=== PATIENT | male | born 1990 | race Caucasian/White ===

== ENCOUNTER 2024-11-17 11:58 | Emergency (ER) | payer OTHER, SELFPAY ==
[2024-11-17] VITALS (10 sets, daily range): BP systolic 157–190; BP diastolic 90–116; PULSE 78–103; RESP 13–22; TEMP 36.8; O2SAT 98–100; BMI 26.2
--- NOTE | 2024-11-17 11:59 | DI.RAD.S_ITS ---
PROCEDURE: XR CHEST 1V INDICATIONS: chest pain TECHNIQUE: One view of the chest was acquired. COMPARISON: None. FINDINGS: Surgical changes and devices: None. Lungs and pleura: Lungs are clear. No pleural effusions or pneumothorax. Mediastinum: Mediastinal contours appear normal. Heart size is normal. Bones and chest wall: No suspicious bony lesions. Overlying soft tissues appear unremarkable. IMPRESSION: No acute cardiopulmonary abnormality is seen. Dictated by: Luis Carlos Ferris M.D. on 11/17/2024 at 12:48 Approved by: Luis Carlos Ferris M.D. on 11/17/2024 at 12:49
--- NOTE | 2024-11-17 11:59 | EKG_ITS ---
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
[2024-11-17 12:15] LABS: Add Manual Diff / Slide Review NO; Basophils Absolute Auto 0 /uL (0-100); Basophils Percent Auto 0.8 % (0-2); Eosinophils Absolute Auto 0 /uL (0-450); Eosinophils Percent Auto 0.7 % (2-4); Hematocrit 46.1 % (41-53); Lymphocytes Absolute Auto 1300 /uL (1100-4500); Lymphocytes Percent Auto 26.2 % (25-40); Mean Corpuscular HGB Conc 34.7 % (30-36); Mean Corpuscular Volume 95.1 fL (80-100); Monocytes Absolute Auto 400 /uL (0-900); Monocytes Percent Auto 8.5 % (3-14); Neutrophils Absolute Auto 3100 /uL (1500-7000); Neutrophils Percent Auto 63.8 % (50-75); Platelet Count 268 X10^3/uL (150-400); Red Blood Cell Count 4.85 X10^6/uL (4.5-5.9); Red Cell Distribution Width 12.9 % (11.6-14.8); White Blood Cell Count 4.9 X10^3/uL (4.5-11.0)
[2024-11-17 12:21] LABS: INR 0.9 (0.9-1.3); Prothrombin Time 10.2 SECONDS (9.4-12.5)
[2024-11-17 12:23] LABS: PTT Partial Thromboplastin Tim 31 SECONDS (25.1-36.5)
[2024-11-17 12:26] LABS: Alanine Aminotransferase 38 IU/L (<50); Albumin 5.2 g/dL (3.5-5.0); Albumin Globulin Ratio 1.8 (1.0-2.8); Alkaline Phosphatase 58 U/L (38-126); Aspartate Aminotransferase 47 IU/L (17-59); BUN Creatinine Ratio 14.7 (6-22); Bilirubin Total 1.3 mg/dL (0.2-1.3); Blood Urea Nitrogen 16 mg/dL (9-20); Calcium 9.7 mg/dL (8.4-10.2); Carbon Dioxide 24 mmol/L (22-32); Chloride 101 mmol/L (98-107); Creatine Kinase 306 U/L (55-170); Estimated Glomerular Filt Rate > 60 mL/min (>60); Globulin 2.9 g/dL (1.7-4.1); Glucose 101 mg/dL (70-100); HEMOLYSIS < 15 (0-50); Lipase 89 U/L (23-300); Magnesium 1.5 mg/dL (1.6-2.3); Potassium 3.9 mmol/L (3.4-5.1); Sodium 137 mmol/L (137-145); Total Protein 8.1 g/dL (6.3-8.2)
[2024-11-17 12:38] LABS: NT-proBNP (BNP-Adult 18+) < 20 pg/mL (<125); Troponin I < 0.012 ng/mL (0.01-0.034)
--- NOTE | 2024-11-17 15:29 | EKG_ITS ---
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
--- NOTE | 2024-11-17 15:57 | PC.NURSE ---
This RNs first interaction with patient.
[2024-11-17 16:31] LABS: Troponin I < 0.012 ng/mL (0.01-0.034)
--- NOTE | 2024-11-17 17:09 | ED.CHESTPAIN ---
HPI - Chest Pain General Chief Complaint: Chest Pain Stated Complaint: Chest tighness Time Seen by Provider: 11/17/24 17:09 Source: patient and EMS Mode of arrival: EMS Limitations: no limitations History of Present Illness HPI narrative: Patient is a 33-year-old male history of hypertension presenting today with chest discomfort. He was at work when he developed some discomfort left side of chest. Nonradiating may have felt some palpitations. No shortness of breath dizziness no jaw pain arm pain or back pain. No nausea vomiting or abdominal pain. He has no known coronary artery disease. He has no family history of coronary artery disease. He does chew tobacco and occasionally smoke but is generally nonsmoker. Pain is nonreproducible denies any recent injury or movement. Related Data Allergies Allergy/AdvReac Type Severity Reaction Status Date / Time No Known Drug Allergies Allergy Verified 11/17/24 12:32 Patient History Social History Smoking Status: Current some day smoker Smoking Status: Current some day smoker Exam Initial Vital Signs Initial Vital Signs: Vital Signs Temperature 98.3 F 11/17/24 12:09 Pulse Rate 103 H 11/17/24 12:09 Blood Pressure 157/112 H 11/17/24 12:09 Pulse Oximetry 98 11/17/24 12:09 Oxygen Delivery Method Room Air 11/17/24 12:09 GENERAL: Alert pleasant 33-year-old male and in no acute distress. HEENT: Head atraumatic,EOMI, pupils reactive, face symmetric, moist mucous membranes CARDIOVASCULAR: Regular rate and rhythm without murmurs, rubs or gallops. RESPIRATORY: Breath sounds equal bilaterally, no wheezes rales or rhonchi. ABDOMEN: Soft, nontender. Normoactive bowel sounds all 4 quadrants. No guarding or rebound. EXTREMITIES: Normal range of motion, no clubbing or edema. Neurovascularly intact NEUROLOGICAL: Alert and oriented x4.Normal gait and speech. Cranial nerves II through XII grossly intact. SKIN: Warm, dry, no laceration, no petechiae, no rashes or lesions. Scores HEART Score Heart Score history: Slightly Suspicious Heart Score EKG: Normal Heart Score Age: < 45 years old Heart Score risk factors: 1-2 risk factors Heart Score troponin: < or = to normal limit Heart Score Total: 1 Course Orders Ordered: ED Orders 11/17/24 11:59 XR chest 1V Stat EKG-12 Lead Stat 11/17/24 12:02 Complete Blood Count AUTO DIFF Stat Comprehensive Metabolic Panel Stat Lipase Stat Magnesium Stat NT-proBNP (BNP-Adult 18+) Stat PTT Partial Thromboplastin [place] Stat Prothrombin Time INR Stat Troponin & CK Cardiac Panel Stat 11/17/24 15:29 EKG-12 Lead Stat 11/17/24 15:58 Troponin I Stat Discontinued Medications Aspirin (Aspirin 81 Mg Chew Tab) 324 mg PO NOW ONE Stop: 11/17/24 12:00 Last Admin: 11/17/24 12:24 Dose: Not Given Documented By: YAIMA Vital Signs Vital signs: Vital Signs - 8 hr 11/17/24 12:09 11/17/24 14:55 11/17/24 15:18 Temperature 98.3 F Pulse Rate 103 H 82 90 Respiratory Rate 16 Blood Pressure 157/112 H 157/108 H Pulse Oximetry 98 99 98 Oxygen Delivery Method Room Air Room Air 11/17/24 15:19 11/17/24 15:19 11/17/24 15:30 Temperature Pulse Rate 94 H 95 H Respiratory Rate 22 16 Blood Pressure 177/109 H Pulse Oximetry 99 100 Oxygen Delivery Method 11/17/24 15:30 11/17/24 16:00 11/17/24 16:00 Temperature Pulse Rate 98 H Respiratory Rate 19 Blood Pressure 176/111 H 184/116 H Pulse Oximetry 100 Oxygen Delivery Method 11/17/24 16:08 11/17/24 16:08 11/17/24 16:30 Temperature Pulse Rate 98 H 100 H Respiratory Rate 15 16 Blood Pressure 190/110 H Pulse Oximetry 98 98 Oxygen Delivery Method 11/17/24 16:30 11/17/24 17:00 11/17/24 17:00 Temperature Pulse Rate 92 H Respiratory Rate 13 Blood Pressure 180/107 H 173/109 H Pulse Oximetry 98 Oxygen Delivery Method 11/17/24 17:46 Temperature Pulse Rate 78 Respiratory Rate 18 Blood Pressure 168/90 H Pulse Oximetry 98 Oxygen Delivery Method Room Air MDM - Chest Pain Lab Data 11/17/24 12:02 11/17/24 12:02 Labs: Lab Results 11/17/24 11/17/24 Range/Units 12:02 15:58 WBC 4.9 (4.5-11.0) X10^3/uL RBC 4.85 (4.5-5.9) X10^6/uL Hgb 16.0 (13.5-17.5) g/dL Hct 46.1 (41-53) % MCV 95.1 (80-100) fL MCH 33.0 (26-34) PG MCHC 34.7 (30-36) % RDW 12.9 (11.6-14.8) % Plt Count 268 (150-400) X10^3/uL Neut % (Auto) 63.8 (50-75) % Lymph % (Auto) 26.2 (25-40) % [place] % (Auto) 8.5 (3-14) % Eos % (Auto) 0.7 L (2-4) % Baso % (Auto) 0.8 (0-2) % Neut # (Auto) 3100 (7801-4567) /uL Lymph # (Auto) 1300 (6663-9256) /uL [place] # (Auto) 400 (0-900) /uL Eos # (Auto) 0 (0-450) /uL Baso # (Auto) 0 (0-100) /uL PT 10.2 (9.4-12.5) SECONDS INR 0.9 (0.9-1.3) APTT 31 (25.1-36.5) SECONDS Sodium 137 (137-145) mmol/L Potassium 3.9 (3.4-5.1) mmol/L Chloride 101 (98-107) mmol/L Carbon Dioxide 24 (22-32) mmol/L BUN 16 (9-20) mg/dL Creatinine 1.09 (0.66-1.25) mg/dL Estimated GFR > 60 (>60) mL/min BUN/Creatinine Ratio 14.7 (6-22) Glucose 101 H (70-100) mg/dL Calcium 9.7 (8.4-10.2) mg/dL Magnesium 1.5 L (1.6-2.3) mg/dL Total Bilirubin 1.3 (0.2-1.3) mg/dL AST 47 (17-59) IU/L ALT 38 (<50) IU/L Alkaline Phosphatase 58 (38-126) U/L Total Creatine Kinase 306 H (55-170) U/L Troponin I < 0.012 < 0.012 (0.01-0.034) ng/mL NT-Pro-B Natriuret Pep < 20 (<125) pg/mL Total Protein 8.1 (6.3-8.2) g/dL Albumin 5.2 H (3.5-5.0) g/dL Globulin 2.9 (1.7-4.1) g/dL Albumin/Globulin Ratio 1.8 (1.0-2.8) Lipase 89 (23-300) U/L Imaging Data Chest x-ray: Radiologist's Impression: PROCEDURE: XR CHEST 1V INDICATIONS: chest pain TECHNIQUE: One view of the chest was acquired. COMPARISON: None. FINDINGS: Surgical changes and devices: None. Lungs and pleura: Lungs are clear. No pleural effusions or pneumothorax. Mediastinum: Mediastinal contours appear normal. Heart size is normal. Bones and chest wall: No suspicious bony lesions. Overlying soft tissues appear unremarkable. IMPRESSION: No acute cardiopulmonary abnormality is seen. Dictated by: Luis Carlos Ferris M.D. on 11/17/2024 at 12:48 ECG Data Attestation: I personally reviewed and interpreted this ECG as follows: Prior ECG tracings: not available for review Interpretation: EKG 1. Sinus rhythm rate 105 [place] interval 176 QRS [address] changes no priors to compare EKG 2. Sinus rhythm rate 92 no ischemia MDM Narrative Medical decision making narrative: Patient 33-year-old male presenting today with chest discomfort. He has a history of hypertension presenting today with chest discomfort. It is reproducible do not think musculoskeletal or costochondritis. He was noted to be mildly hypertensive here with a elevated diastolic. Reports that he takes amlodipine at night and he has not missed any doses. Blood work has been reviewed overall reassuring. He was 2- troponins no LARRY Chest x-ray no acute cardiopulmonary process EKGs reviewed no changes no acute ischemia At this time recommend the patient stop using all tobacco products he needs to have better blood pressure control recommend following up with his primary care provider. Also returning to ED if symptoms worsen. He was low risk with a heart score of 1 Discharge Plan Departure Patient Disposition: Home Clinical Impression: Atypical chest pain Instructions: DI for Atypical Chest Pain Activity Restrictions/Additional Instructions: *You have been diagnosed with atypical chest pain *What to do: At this time please follow-up with your provider you may require further cardiac testing. May need echocardiogram and/or stress test. May need to talk about a ZIO monitor if you continue to have palpitations Also I recommend stopping all tobacco products *Continue to take medications as directed *Follow up with your primary care provider in 2-3 days or call [phone] *Return to ER if you should have increasing chest pain palpitations shortness of [or] any new, worsening or concerning symptoms Referrals: Ilana Newton PA-C [Primary Care Provider] - Stand Alone Forms: Patient Portal/API/Survey
== END 2024-11-17 17:46 | disposition home or self-care (01) ==
PROVIDERS: Emergency Provider Emergency Medicine; PCP Physician Assistant
DX: R07.89 Other chest pain (principal); R00.2 Palpitations; F17.210 Nicotine dependence, cigarettes, uncomplicated; F17.220 Nicotine dependence, chewing tobacco, uncomplicated
CPT/HCPCS: 71045; 80053; 82550; 83690; 83735; 83880; 84484; 85025; 85610; 85730; 93005; 93010; 99283; 99284